=== PATIENT | female | born 1975 | race African-American/Black ===

== ENCOUNTER 2020-02-10 13:30 | Inpatient (IN) ==
[2020-02-10 14:23] LABS: Basophils % 0.1 % (0.0-0.8); Eosinophils % 0.2 % (0.00-10.9); Hematocrit 37.8 VOL% (35.7-47.0); Hemoglobin 12.1 GM/DL (12.0-16.0); Immature Granulocytes % 0.3 %; Immature Granulocytes Absolute 0.03 #; Lymphocytes # 1.2 10*3/uL (1.4-4.0); Lymphocytes % 13.1 % (21.3-54.2); Mean Corpuscular Volume 93.6 FL (87-102); Mean Platelet Volume 9.4 FL (9.6-12.0); Monocytes % 4.8 % (1.7-12.7); Neutrophils % 81.5 % (38.7-73.9); Platelet Count 187 T/CUMM (130-400); Red Blood Count 4.04 MC/CUMM (3.8-5.5); Red Cell Distribution Width 15.1 % (9.3-17.3); White Blood Count 8.9 T/CUMM (4-12)
[2020-02-10 14:35] LABS: INR 0.9; PT Patient Result 9.8 SECS (9.8-11.9); Partial Thromboplastin Time 24.7 SECS (23.9-33.8)
[2020-02-10 14:54] LABS: Lymphocytes 7 % (20-55); Platelet Estimate Normal; Segmented Neutrophils 87 % (50-85); Total Cells Counted 100
[2020-02-10 15:00] LABS: Calcium 7.6 MG/DL (8.5-10.1); Osmolality,Calculated 285.8 MOS/KG (273-304)
[2020-02-10 15:14] LABS: Ferritin 300.3 ng/ml (8-252)
[2020-02-10] MEDS ORDERED: GLUCAGON 1 MG VIAL IM PRN (15:57)
[2020-02-10] MEDS ORDERED: DOCUSATE SODIUM 100 MG CAPSULE PO PRN (15:57)
[2020-02-10] MEDS ORDERED: ACETAMINOPHEN 325 MG TABLET PO PRN (15:57)
[2020-02-10] MEDS ORDERED: ONDANSETRON 4 MG/2 ML VIAL IV PRN (15:57)
[2020-02-10] MEDS ORDERED: DEXTROSE 50% 25 GM/50 ML VIAL IV PRN (15:57)
[2020-02-10] MEDS ORDERED: hydrALAZINE 20 MG/1 ML VIAL IV PRN (15:57)
[2020-02-10 16:15] LABS: Apearance,Urine Slightly Hazy (Clear); Bacteria,Urine Occasional /HPF (Few); Bilirubin,Urine Negative (Negative); Blood, Urine Small mg/dL (Negative); Glucose,Urine (UA) Negative (Negative); Ketones,Urine Negative (Negative); Mucus,Urine Occasional /LPF (Occasional); Nitrite,Urine Negative (Negative); Protein,Urine 100 MG/DL; RBC,Urine 1 /HPF (0-4); Squamous Epithelial Cell,Urine Occasional /HPF (0-10); Urine Color Yellow (Yellow); Urine Specific Gravity 1.011 (1.001-1.035); Urine Urobilinogen < 2.0 EU/DL (0.2-1.0); WBC,Urine 3 /HPF (0-6)
[2020-02-10] MEDS ORDERED: AZITHROMYCIN INJ 500 MG in SODIUM CHLORIDE 0.9% 250 ML IV ONE (16:50)
[2020-02-10 16:53] LABS: Risk Ratio 2.8; Thyroid Stimulating Hormone 0.193 uIU/ml (0.358-3.74)
[2020-02-10] MEDS: SODIUM CHLORIDE 0.9% 1,000 ML IV SCH (18:13)
[2020-02-10] MEDS: cefTRIAXone 1,000 MG in SYRINGE 1 EACH IV SCH (18:14)
[2020-02-10] MEDS: OXcarbazepine 300 MG TABLET PO SCH (20:27)
[2020-02-10] MEDS ORDERED: APIXABAN 5 MG TABLET PO SCH (21:00)
[2020-02-11] MEDS: SODIUM CHLORIDE 0.9% 1,000 ML IV SCH (03:49)
[2020-02-11 06:26] LABS: Basophils % 0.1 % (0.0-0.8); Eosinophils # 0.1 10*3/uL (0.0-0.87); Eosinophils % 1.1 % (0.00-10.9); Hematocrit 36.6 VOL% (35.7-47.0); Hemoglobin 11.4 GM/DL (12.0-16.0); Immature Granulocytes % 0.4 %; Immature Granulocytes Absolute 0.03 #; Lymphocytes # 1.7 10*3/uL (1.4-4.0); Lymphocytes % 21.9 % (21.3-54.2); Mean Corpuscular HGB Conc 31.1 GM/DL (32-36); Mean Corpuscular Volume 94.3 FL (87-102); Mean Platelet Volume 9.6 FL (9.6-12.0); Monocytes % 6.9 % (1.7-12.7); Neutrophils % 69.6 % (38.7-73.9); Platelet Count 205 T/CUMM (130-400); Red Blood Count 3.88 MC/CUMM (3.8-5.5); Red Cell Distribution Width 15.3 % (9.3-17.3); White Blood Count 7.9 T/CUMM (4-12)
[2020-02-11 07:00] LABS: Bilirubin,Total 0.7 MG/DL (0.2-1.0); Calcium 7.5 MG/DL (8.5-10.1); Osmolality,Calculated 288.1 MOS/KG (273-304); Total Protein 6.9 G/DL (6.4-8.3)
[2020-02-11 07:17] LABS: Burr Cells Few; Hypochromasia 1+; Lymphocytes 23 % (20-55); Polychromasia Slight; Segmented Neutrophils 72 % (50-85); Total Cells Counted 100
[2020-02-11 07:18] LABS: Platelet Estimate Normal
[2020-02-11] MEDS ORDERED: MELOXICAM 7.5 MG TABLET PO SCH (09:00)
[2020-02-11 09:51] LABS: INR 0.9; Partial Thromboplastin Time 27.6 SECS (23.9-33.8)
[2020-02-11] MEDS: OXcarbazepine 300 MG TABLET PO SCH ×2 (10:07→22:20)
[2020-02-11] MEDS: amLODIPine 10 MG TABLET PO SCH (10:07)
[2020-02-11] MEDS: AZITHROMYCIN 250 MG TABLET PO SCH (10:07)
[2020-02-11] MEDS: cefTRIAXone 1,000 MG in SYRINGE 1 EACH IV SCH (10:08)
[2020-02-11] MEDS: PANTOPRAZOLE 40 MG TABLET PO SCH (10:08)
[2020-02-11] MEDS: HEPARIN 5,000 UNIT/1 ML VIAL SUBCUT SCH ×2 (10:08→18:56)
[2020-02-11] MEDS: SODIUM CHLORIDE 0.45% 1,000 ML IV SCH ×2 (18:56→22:00)
[2020-02-12] MEDS: HEPARIN 5,000 UNIT/1 ML VIAL SUBCUT SCH ×3 (01:29→16:58)
[2020-02-12] MEDS: SODIUM CHLORIDE 0.45% 1,000 ML IV SCH ×3 (05:44→21:30)
[2020-02-12 07:55] LABS: Basophils % 0.4 % (0.0-0.8); Eosinophils # 0.1 10*3/uL (0.0-0.87); Eosinophils % 1.7 % (0.00-10.9); Hematocrit 35.7 VOL% (35.7-47.0); Hemoglobin 10.9 GM/DL (12.0-16.0); Immature Granulocytes % 0.4 %; Immature Granulocytes Absolute 0.03 #; Lymphocytes # 1.7 10*3/uL (1.4-4.0); Lymphocytes % 22.4 % (21.3-54.2); Mean Corpuscular HGB Conc 30.5 GM/DL (32-36); Mean Corpuscular Volume 95.7 FL (87-102); Mean Platelet Volume 9.6 FL (9.6-12.0); Monocytes % 5.2 % (1.7-12.7); Neutrophils % 69.9 % (38.7-73.9); Platelet Count 230 T/CUMM (130-400); Red Blood Count 3.73 MC/CUMM (3.8-5.5); Red Cell Distribution Width 15.8 % (9.3-17.3); White Blood Count 7.7 T/CUMM (4-12)
[2020-02-12 08:05] LABS: Calcium 7.2 MG/DL (8.5-10.1); Osmolality,Calculated 292.7 MOS/KG (273-304)
[2020-02-12 08:16] LABS: Hypochromasia 1+
[2020-02-12 08:17] LABS: Platelet Estimate Normal
[2020-02-12] MEDS: cefTRIAXone 1,000 MG in SYRINGE 1 EACH IV SCH (08:49)
[2020-02-12] MEDS: OXcarbazepine 300 MG TABLET PO SCH ×2 (08:50→21:31)
[2020-02-12] MEDS: PANTOPRAZOLE 40 MG TABLET PO SCH (08:50)
[2020-02-12] MEDS: amLODIPine 10 MG TABLET PO SCH (08:50)
[2020-02-12] MEDS: AZITHROMYCIN 250 MG TABLET PO SCH (09:17)
[2020-02-13] MEDS: HEPARIN 5,000 UNIT/1 ML VIAL SUBCUT SCH ×3 (01:35→16:27)
[2020-02-13] MEDS: SODIUM CHLORIDE 0.45% 1,000 ML IV SCH ×3 (05:15→21:03)
[2020-02-13 05:39] LABS: Basophils % 0.4 % (0.0-0.8); Eosinophils # 0.2 10*3/uL (0.0-0.87); Eosinophils % 2.3 % (0.00-10.9); Hematocrit 34.2 VOL% (35.7-47.0); Hemoglobin 10.7 GM/DL (12.0-16.0); Immature Granulocytes % 0.6 %; Immature Granulocytes Absolute 0.05 #; Lymphocytes # 2.2 10*3/uL (1.4-4.0); Mean Corpuscular HGB Conc 31.3 GM/DL (32-36); Mean Corpuscular Volume 95.3 FL (87-102); Mean Platelet Volume 9.3 FL (9.6-12.0); Monocytes % 5.2 % (1.7-12.7); Neutrophils % 63.5 % (38.7-73.9); Platelet Count 242 T/CUMM (130-400); Red Blood Count 3.59 MC/CUMM (3.8-5.5); Red Cell Distribution Width 15.7 % (9.3-17.3); White Blood Count 7.9 T/CUMM (4-12)
[2020-02-13 05:47] LABS: INR 0.9; PT Patient Result 9.8 SECS (9.8-11.9); Partial Thromboplastin Time 35.5 SECS (23.9-33.8)
[2020-02-13 05:53] LABS: Calcium 7.6 MG/DL (8.5-10.1)
[2020-02-13 06:12] LABS: Alanine Aminotransferase 64 U/L (13-56); Albumin 2.1 G/DL (3.4-5.0); Alkaline Phosphatase 122 U/L (45-117); Aspartate Amino Transferase 67 U/L (0-37); Bilirubin,Total < 0.39 MG/DL (0.2-1.0); Blood Urea Nitrogen 22 MG/DL (7-18); Calcium 7.8 MG/DL (8.5-10.1); Estimated Glom Filtration Rate 26 ML/MIN; Glucose 89 MG/DL (74-106); Osmolality,Calculated 284.1 MOS/KG (273-304); Total Protein 7.1 G/DL (6.4-8.3)
[2020-02-13] MEDS: cefTRIAXone 1,000 MG in SYRINGE 1 EACH IV SCH (08:19)
[2020-02-13] MEDS: OXcarbazepine 300 MG TABLET PO SCH ×2 (08:22→21:04)
[2020-02-13] MEDS: AZITHROMYCIN 250 MG TABLET PO SCH (08:22)
[2020-02-13] MEDS: amLODIPine 10 MG TABLET PO SCH (08:22)
[2020-02-13] MEDS: PANTOPRAZOLE 40 MG TABLET PO SCH (08:23)
[2020-02-14] MEDS: HEPARIN 5,000 UNIT/1 ML VIAL SUBCUT SCH ×2 (01:35→09:16)
[2020-02-14] MEDS: SODIUM CHLORIDE 0.45% 1,000 ML IV SCH ×2 (05:06→15:06)
[2020-02-14] MEDS: SODIUM CHLORIDE 0.9% 1,000 ML IV SCH (07:26)
[2020-02-14 07:44] VITALS: BP 148/94
[2020-02-14] MEDS: OXcarbazepine 300 MG TABLET PO SCH (09:15)
[2020-02-14] MEDS: PANTOPRAZOLE 40 MG TABLET PO SCH (09:15)
[2020-02-14] MEDS: cefTRIAXone 1,000 MG in SYRINGE 1 EACH IV SCH (09:15)
[2020-02-14] MEDS: amLODIPine 10 MG TABLET PO SCH (09:15)
[2020-02-14] MEDS: AZITHROMYCIN 250 MG TABLET PO SCH (09:16)
[2020-02-14 14:34] LABS: Calcium 8.1 MG/DL (8.5-10.1); Osmolality,Calculated 279.4 MOS/KG (273-304)
== END 2020-02-14 15:45 | disposition home or self-care (01) | DRG 177 ==
LOC: N.ED 13:30 → N.EDINP 15:52 → SUATTDRO 15:52 → N.2E 17:42
PROVIDERS: ADMIT Internal Medicine Nephrology; ATTEND Family Medicine